=== PATIENT | female | born 1975 | race Caucasian/White ===

== ENCOUNTER 2024-02-13 11:52 | Emergency (ER) | payer MEDICAID ==
[~2024-02-13] VITALS: Ht 152.4 cm; Wt 54.0 kg
[2024-02-13 11:56] VITALS: BP 117/74; RESP 20; TEMP 98.1; O2SAT 99
[2024-02-13 11:57] VITALS: PULSE 99
[2024-02-13] MEDS ORDERED: ACET-2708 MT (14:27)
[2024-02-13] MEDS: ACETAMINOPHEN 500MG TABLET PO ONE (14:30)
== END 2024-02-13 16:50 | disposition home or self-care (01) ==
LOC: ER 12:19
DX: M79.641 Pain in right hand (principal)
CPT/HCPCS: 29125; 73110; 73130; 99284

== ENCOUNTER 2025-06-01 11:41 | Emergency (ER) | payer OTHER ==
[~2025-06-01] VITALS: Ht 149.9 cm; Wt 65.0 kg
[~2025-06-01 11:41] MED LIST: ACET-2708 MT
[2025-06-01 11:53] VITALS: O2SAT 98
[2025-06-01] MEDS ORDERED: ACET-2708 MT (12:38)
[2025-06-01 12:48] VITALS: BP 136/50; PULSE 84; RESP 17; TEMP 36.9; O2SAT 99
== END 2025-06-01 13:00 | disposition home or self-care (01) ==
LOC: ER 11:41
DX: S50.00XA Contusion of unspecified elbow, initial encounter (principal); Z88.6 Allergy status to analgesic agent; X58.XXXA Exposure to other specified factors, initial encounter; Y93.89 Activity, other specified; Y92.89 Other specified places as the place of occurrence of the external cause; Y99.8 Other external cause status
CPT/HCPCS: 73070; 99284; A4565